=== PATIENT | male | born 1960 | race Caucasian/White ===

== ENCOUNTER → 2018-11-03 | Outpatient (CLI) | payer OTHER | LOC: FIMAGING 15:34 | PROVIDERS: ATTEND Orthopaedic Surgery | DX: Z01.818 Encounter for other preprocedural examination (principal); M17.11 Unilateral primary osteoarthritis, right knee; M25.461 Effusion, right knee; M71.21 Synovial cyst of popliteal space [Baker], right knee ==

== ENCOUNTER 2018-11-17 05:57 | Observation (INO) | payer OTHER ==
[2018-11-17] MEDS ORDERED: ROPIVACAINE 0.2% 80 MG, EPINEPHrine 0.2 MG, KETOROLAC TROMETHAMINE 30 MG in SYRINGE 0 ML IU ONE (06:00)
[2018-11-17] MEDS ORDERED: TRANEXAMIC ACID 3,000 MG in NS (SYRINGE) 50 ML IRR ONE (06:00)
--- NOTE | 2018-11-17 06:16 | PDHPUP ---
History & Physical Update H&P update statement: This history and physical update is based on an assessment of the patient which was completed after admission or registration (within 24 hours), but prior to the surgery/procedure. H&P update: H&P reviewed & patient examined, no change in patient's condition since H&P completed
[2018-11-17] MEDS ORDERED: ACETAMINOPHEN 325 MG TAB PO ONE (06:36)
[2018-11-17] MEDS ORDERED: ceFAZolin 2 GM/DEXTROSE 100 ML IV ONE (06:36)
[2018-11-17] MEDS ORDERED: FAMOTIDINE 20 MG TAB PO ONE (06:36)
[2018-11-17] MEDS ORDERED: DEXAMETHASONE 4 MG/ML VIAL IVP ONE (06:36)
[2018-11-17] MEDS ORDERED: LR 1,000 ML IV ONE (06:37)
[2018-11-17] MEDS ORDERED: FAMOTIDINE 20 MG TAB ONE (06:40)
[2018-11-17] MEDS ORDERED: ACETAMINOPHEN 325 MG TAB ONE (06:40)
[2018-11-17] MEDS ORDERED: DEXAMETHASONE 4 MG/ML VIAL ONE (06:41)
[2018-11-17] MEDS ORDERED: CEFAZOLIN 2 GM/DEXTROSE/100 ML BAG IV ONE (06:41)
[2018-11-17] MEDS ORDERED: VANCOMYCIN 1 GM VIAL ONE (06:46)
[2018-11-17] MEDS ORDERED: TRANEXAMIC ACID 3,000 MG/50 ML BAG IRR ONE (06:46)
[2018-11-17] MEDS ORDERED: MIDAZOLAM 2 MG/2 ML VIAL IVP ONE (06:49)
--- NOTE | 2018-11-17 06:50 | PDANEPAE ---
ANE History of Present Illness OA of knee ANE Past Medical History - Cardiovascular History Hx Hypertension: No Hx Arrhythmias: No Hx Chest Pain: No Hx Coronary Artery / Peripheral Vascular Disease: No Hx CHF / Valvular Disease: No Hx Palpitations: No - Pulmonary History Hx COPD: No Hx Asthma/Reactive Airway Disease: No Hx Recent Upper Respiratory Infection: No Hx Oxygen in Use at Home: No Hx Sleep Apnea: No Sleep Apnea Screening Result - Last Documented: Negative - Neurologic History Hx Cerebrovascular Accident: No Hx Seizures: No Hx Dementia: No - Endocrine History Hx Diabetes: No Hypothyroid: No Hyperthyroid: No Obesity: no - Renal History Hx Renal Disorders: No - Liver History Hx Hepatic Disorders: No - Neurological & Psychiatric Hx Hx Neurological and Psychiatric Disorders: No - Cancer History Hx Cancer: No - Congenital Disorder History Hx Congenital Disorders: No - GI History GERD: no Hx Gastrointestinal Disorders: No - Other Health History Other Health History: OSTEOARTHRITIS - Chronic Pain History Chronic Pain: Yes (RT KNEE) - Surgical History Prior Surgeries: RT ELBOW REMVL FORIEGN BODY. REMVL SCALP VEIN. LT ING HERNIA. ADENOIDS ANE Review of Systems Review of systems is: negative Review of Systems: - Exercise capacity METS (RN): 5 METS ANE Patient History - Allergies Allergies/Adverse Reactions: No Known Allergies Allergy (Unverified 07/02/12 17:28) - Home Medications Home medications: home medication list seen and reviewed Home Medications: Benadryl 25 MG (*) HS 11/05/18 [Last Taken Unknown] Herbals/Supplements -Info Only HS 11/05/18 [Last Taken Unknown] - NPO status NPO Status: no food or drink >8 hours - Anes Hx Anes Hx: no prior problems - Smoking Hx Smoking Status: Never smoked Marijuana use: No - Alcohol Use Alcohol Use: Rarely - Family Anes Hx Family Anes Hx: none ANE Labs/Vital Signs - Vital Signs Height: 185.42 cm Weight: 97.522 kg ANE Physical Exam - Airway Neck exam: FROM Mallampati Score: Class 2 Mouth exam: normal dental/mouth exam - Pulmonary Pulmonary: no respiratory distress, clear to auscultation - Cardiovascular Cardiovascular: regular rate and rhythym, no murmur, rub, or gallop - ASA Status ASA Status: I ANE Anesthesia Plan Anesthesia Plan: general endotracheal anesthesia, spinal Regional Anesthesia: single shot NB
[2018-11-17] MEDS ORDERED: ROPIVACAINE HCL 150 MG/30 ML INJ ONE (06:58)
[2018-11-17] MEDS ORDERED: LIDOCAINE 2% 5 ML SDV ONE (06:58)
[2018-11-17] MEDS ORDERED: PROPOFOL/EMULSION 500 MG/50 ML BOTTLE IV ONE (06:58)
[2018-11-17] MEDS ORDERED: BUPIVACAINE/DEXTROSE 7.5MG/ML 2 ML SPINAL AMP SP ONE (06:59)
[2018-11-17] MEDS ORDERED: fentaNYL 100 MCG/2 ML INJ ONE (07:06)
[2018-11-17] MEDS ORDERED: PROPOFOL 200 MG/20 ML VIAL ONE (08:12)
[2018-11-17] MEDS ORDERED: fentaNYL 100 MCG/2 ML INJ IVP PRN (08:23)
[2018-11-17] MEDS ORDERED: PROMETHAZINE HCL 25 MG/ML INJ IVP PRN ×2 (08:23→08:32)
[2018-11-17] MEDS ORDERED: MEPERIDINE 25 MG/0.5 ML AMP IVP PRN (08:23)
[2018-11-17] MEDS ORDERED: HYDROmorphONE/DILAUDID 2 MG/ML INJ IVP PRN (08:23)
[2018-11-17] MEDS ORDERED: LR 500 ML IV PRN (08:23)
[2018-11-17] MEDS ORDERED: ONDANSETRON 4 MG/2 ML VIAL IVP PRN ×2 (08:23→08:32)
[2018-11-17] MEDS ORDERED: NALOXONE HCL 0.4 MG/ML INJ IVP PRN (08:23)
--- NOTE | 2018-11-17 08:23 | POSTANESTH ---
Post Anesthetic Evaluation Cardiovascular Status: Normal, Stable Respiratory Status: Normal, Stable Level of Consciousness/Mental Status: Can Participate in Eval Pain Control: Adequate, Prn Tx Ordered Nausea/Vomiting Control: Adequate, Prn Tx Ordered Complications Possibly Related to Anesthesia: None Noted
[2018-11-17] MEDS ORDERED: BISACODYL 10 MG SUPP PR PRN (08:32)
[2018-11-17] MEDS ORDERED: PROMETHAZINE HCL 25 MG SUPPR PR PRN (08:32)
[2018-11-17] MEDS ORDERED: TEMAZEPAM 15 MG CAP PO PRN (08:32)
[2018-11-17] MEDS ORDERED: oxyCODONE IR 5 MG TAB PO PRN (08:32)
[2018-11-17] MEDS ORDERED: diphenhydrAMINE 25 MG CAP PO PRN (08:32)
[2018-11-17] MEDS ORDERED: ONDANSETRON DISINTEGRATING 4 MG TAB PO PRN (08:32)
[2018-11-17] MEDS ORDERED: METOCLOPRAMIDE 10 MG/2 ML VIAL IVP PRN (08:32)
[2018-11-17] MEDS ORDERED: POLYETHYLENE GLYCOL 3350 17 GM PKT PO PRN (08:32)
[2018-11-17] MEDS ORDERED: LACTULOSE 20 GM/30 ML UDCUP PO PRN (08:32)
[2018-11-17] MEDS ORDERED: CYCLOBENZAPRINE 10 MG TAB PO PRN (08:32)
[2018-11-17] MEDS ORDERED: DIPHENOXYLATE/ATROPINE LOMOTIL 1 TAB PO PRN (08:32)
[2018-11-17] MEDS ORDERED: MAGNESIUM HYDROXIDE 30 ML UDCUP PO PRN (08:32)
--- NOTE | 2018-11-17 08:32 | POSTOPPROG ---
Post Op Note Date of Operation: 11/17/18 Surgeon: Ivet Kathleen Hand Cloth Folder: Whit Kathleen and Radha Iyer PA-C Anesthesiologist: Dr. Mariposa Veloz Anesthesia: Spinal, Other (Specify) (adductor canal block) Pre-op Diagnosis: OA of right medial knee Post-op Diagnosis: OA of right medial knee Indication: right knee pain Procedure: right medial PKA, robot assisted Findings: severe OA of right medial knee Inf/Abcess present in the surg proc area at time of surgery?: No EBL: 50-100
[2018-11-17] MEDS ORDERED: LR 1,000 ML IV SCH (09:00)
[2018-11-17] MEDS ORDERED: SENNOSIDES/DOCUSATE SODIUM TAB PO SCH (09:00)
[2018-11-17] MEDS ORDERED: traMADol 50 MG TAB PO PRN (11:32)
[2018-11-17] MEDS ORDERED: ceFAZolin 2 GM/DEXTROSE 100 ML IV SCH (14:00)
[2018-11-17] MEDS ORDERED: ACETAMINOPHEN 325 MG TAB PO SCH (14:32)
[2018-11-17 15:28] VITALS: BP 138/91
[2018-11-17] MEDS ORDERED: FAMOTIDINE 20 MG TAB PO SCH (21:00)
[2018-11-17] MEDS ORDERED: ASPIRIN 81 MG CHEWABLE TAB PO SCH (21:00)
--- NOTE | 2018-11-18 11:01 | GDS ---
[f rep st] DISCHARGE SUMMARY ADMISSION DIAGNOSIS: Right knee osteoarthritis. DISCHARGE DIAGNOSIS: Right knee osteoarthritis. PROCEDURE: Right partial knee arthroplasty, medial compartment, robotic assisted. VTE PROPHYLAXIS: Recommend aspirin 81 mg twice daily for 4 weeks. BRIEF DESCRIPTION OF HOSPITAL STAY: Patient was admitted for an elective joint arthroplasty. The pa danie tolerated the procedure well and has passed physical therapy. The patient was given appropriat e antibiotic prophylaxis and venous thromboembolism prophylaxis. The patient's pain was well control led on oral pain medication, patient was holding down food, and had urinated. Decision was made to d ischarge the patient. The patient was given post-operative prescriptions pre-operatively. PLAN: Followup as scheduled with Dr. Kathleen's office, December 09, at 9:45 a.m. /[id number]/MODL
--- NOTE | 2018-11-18 16:58 | GOP ---
[f rep st] OPERATIVE REPORT DATE OF OPERATION: 11/17/2018 SURGEON: Lalo Kathleen MD ELECTRICAL FITTER: Whit Kathleen PA-C, and Lynda Iyer PA-C. ANESTHESIA: Spinal. PREOPERATIVE DIAGNOSIS: Right knee osteoarthritis. POSTOPERATIVE DIAGNOSIS: Right knee osteoarthritis. PROCEDURE PERFORMED: Right medial compartment partial replacement navigation, robotic assist, KENNETH uni-knee. FINDINGS: ESTIMATED BLOOD LOSS: 30 cc. INDICATIONS: This is a 58-year-old male with progressive pain of the right knee unresponsive to conservative care. Risks and benefits of surgical intervention were explained in detail. DESCRIPTION OF PROCEDURE: The patient was brought to the operating room and placed on the table in supine position. Spinal anesthesia was induced without difficulty. A pneumatic tourniquet was applied about the right proximal thigh and the leg was prepped and draped in sterile fashion. Attention was turned first to the distal aspect of the right femur. At 3 cm proximal to the lateral rise of the femur, 2 percutaneous half pins were placed for fixation of the femoral array. In a similar fashion, 2 pins were placed anterolateral on the tibia for fixation of the tibial array. External land marking and registration of the hip center was performed without difficulty. After exsanguination by elevation, the tourniquet was inflated to 250 mmHg. Incision was made from the tibial tuberosity to the superior pole of the patella. Dissection was carried out through the subcutaneous tissue to the deep fascia using Bovie electrocautery for hemostasis. Medial parapatellar arthrotomy was carried out to the superior pole of the patella. The medial collateral ligament was elevated and the infrapatellar fat pad was resected. Internal femoral and tibial registration was carried out without difficulty and the femoral and tibial checkpoints were placed and verified for accuracy. Attention was turned to the femur. The foot print for the size 6 femoral component was cut with the 6 mm bur using the [employer] robotic system and verified for accuracy against the CT based plan. The hole was cut for the femoral post. In a similar fashion, the 6 mm bur was used to cut the foot print for the size 5 tibial component using the BRYAN system and verified for accuracy against the CT based plan. Attention was turned to the posterior aspect of the knee and remnants of the medial meniscus were excised. The posterior capsule was injected with ropivacaine, epinephrine and Toradol. Trial reduction was carried out and there was excellent range of motion, alignment and stability using the size 6 femoral component and the size 5 tibial component, 5 x 9 mm polyethylene. All trials were then removed. The joint was thoroughly irrigated and carefully dried. One package of cement and 1 gram of vancomycin were mixed in the vacuum mixer and placed on the fixation surfaces of all components. The components were implanted and all excess cement was thoroughly removed. Implant placement was verified against the CT view plan and found to be excellent. The tourniquet was deflated and all bleeders were coagulated. The wound was thoroughly irrigated and closed using interrupted sutures of 2-0 Vicryl for the joint capsule. The subcu was closed with 3-0 Vicryl and the skin with 4-0 Monocryl. Dermabond and Steri-Strips were applied, followed by a compressive dressing. The patient was then moved from the operating room to the recovery room in good condition, having tolerated the procedure well. PATHOLOGY: Severe medial compartment osteoarthritis. CASE CLASSIFICATION: Clean. /[id number]/MODL MTDD
== END 2018-11-17 19:49 | disposition home or self-care (01) ==
LOC: FSGY 05:57 → F3E 08:32 → F3N 09:51 → EDSTATUS 14:00
PROVIDERS: ADMIT Physician Assistant; ATTEND Orthopaedic Surgery
DX: M17.11 Unilateral primary osteoarthritis, right knee (principal)
CPT/HCPCS: 27446; 73560; 97116; 97161; G0378; C1713; J0171; J0690; J1100; J1885; J2250; J2704; J2795; J3010; J3370